=== PATIENT | male | born 1980 | race Caucasian/White ===

== ENCOUNTER 2017-08-02 17:56 | Emergency (ER) | payer MEDICAID, MEDICARE ==
[~2017-08-02 17:56] MED LIST: CHOL10005 PO; CHOL500045 PO; CYCL10TA29 PO; DIA5 PO; GABA-547 PO; GABA-549 PO; HYDR-4309 PO; MELO-207 PO; OMEP40CA48 PO; OXYC-373 PO; OXYC-865 PO; SULF-198 PO; TIZA4CAP3 PO
[2017-08-02] MEDS ORDERED: ASPIRIN 81 MG CHEW PO ONE (18:25)
--- NOTE | 2017-08-02 18:29 | EKG ---
FACILITY: [facility] PATIENT NAME: COLLIN STINSON : [id number] MR: [id number] V: [id number] EXAM DATE: ORDERING PHYSICIAN: DANIELLE CABRAL TECHNOLOGIST: SOL Li Reason : CP Blood Pressure : / mmHG Vent. Rate : 114 BPM Atrial Rate : 114 BPM P-R Int : 164 ms QRS Dur : 086 ms QT Int : 320 ms P-R-T Axes : 062 081 035 degrees QTc Int : 441 ms Sinus tachycardia Otherwise normal ECG No previous ECGs available Confirmed by RADHA OROZCO ([id number]) on 08/03/2017 12:30:30 PM Referred By: Confirmed By:RADHA OROZCO
[2017-08-02 18:35] LABS: PLATELET COUNT, AUTOMATED 235 K/uL (150-450)
--- NOTE | 2017-08-02 18:50 | ER Report ---
History and Physical Time Seen By MD: 18:10 Hx. of Stated Complaint: patient reports chest pain that started around 15 minutes prior to arrival. patient was walking at [facility] HPI/ROS CHIEF COMPLAINT: Chest pain HISTORY OF PRESENT ILLNESS: Patient is a 37-year-old male accompanied by his , who presents the ED with complaint of chest pain started about an hour ago. He states that he 1st noticed some jaw pain about 2 hours ago but went to [facility] and was riding in a cart and noted that he was having a little bit of chest pain as well. He denies any shortness of breath. He did have nausea and an episode of vomiting prior to going to [facility] as well. Patient has not noted any cough or abdominal pain. He denies any diarrhea. Patient has not noted any fever. He does have a history of muscular dystrophy and states that he has had cardiomegaly from this. He also states that he may have had a heart attack previously but denies any Stent or procedure associated with this. REVIEW OF SYSTEMS: Constitutional: No fever, no chills. Eyes: No discharge. ENT: No sore throat. Cardiovascular: See history of present illness. No palpitations. Respiratory: No cough, no shortness of breath. Gastrointestinal: No abdominal pain, no vomiting. Genitourinary: No hematuria. Musculoskeletal: No back pain. Skin: No rashes. Neurological: No headache. Allergies: Coded Allergies: baclofen (Verified Allergy, Severe, HIVES/SWELLING, 10/26/16) Home Meds Discontinued Reported Medications Cholecalciferol (Vitamin D3) (VITAMIN D) 5,000 Unit Tablet, 5000 UNIT PO QDAY 02/20/17 Discontinued Scripts Gabapentin (GABAPENTIN) 300 Mg Capsule, 300 MG PO TID, #90 CAPSULE 3 Refills Prov:BRYCE RAMIREZ MD 02/20/17 Cyclobenzaprine Hcl (CYCLOBENZAPRINE HCL) 10 Mg Tablet, 10 MG PO BID Y for PAIN , SPASM, #60 TAB 3 Refills Prov:BRYCE RAMIREZ MD 01/16/17 Omeprazole (OMEPRAZOLE) 40 Mg Capsule.dr, 40 MG PO QDAY, #30 CAP 3 Refills Prov:BRYCE RAMIREZ MD 01/16/17 Meloxicam (MELOXICAM) 15 Mg Tablet, 15 MG PO QDAY Y for pain, #30 TAB 3 Refills Prov:BRYCE RAMIREZ MD 01/16/17 Reviewed Nurses Notes: Yes Old Medical Records Reviewed: Yes Smoking Status: Current: Every Day Smoker Hx Substance Use Disorder: No Hx Alcohol Use: No Constitutional Vital Sign - Last 24 Hours 08/02/17 08/02/17 08/02/17 08/02/17 17:59 18:00 18:02 18:08 B/P (MAP) 106/82 (90) 106/82 112/81 (91) O2 Delivery Room Air O2 Flow Rate 2.0 08/02/17 08/02/17 08/02/17 08/02/17 18:11 18:26 18:30 18:41 Pulse 107 112 Resp 19 30 21 B/P (MAP) 106/78 (87) Pulse Ox 92 92 91 08/02/17 08/02/17 08/02/17 08/02/17 18:46 19:00 19:01 19:16 Pulse 111 112 108 Resp 20 23 30 B/P (MAP) 101/60 (74) Pulse Ox 91 92 93 08/02/17 08/02/17 08/02/17 08/02/17 19:30 19:31 19:46 20:00 Pulse 101 107 Resp 15 25 B/P (MAP) 96/74 (81) 94/67 (76) Pulse Ox 93 93 08/02/17 08/02/17 08/02/17 08/02/17 20:01 20:16 20:30 20:42 Pulse 102 101 Resp 21 18 B/P (MAP) 95/64 (74) 104/65 (78) Pulse Ox 92 92 08/02/17 08/02/17 08/02/17 08/02/17 20:47 21:00 21:17 21:30 Pulse 94 100 Resp 19 26 B/P (MAP) 112/77 (89) 122/75 (91) Pulse Ox 92 94 08/02/17 08/02/17 08/02/17 21:32 21:37 21:52 Pulse 94 104 89 Resp 23 11 15 Pulse Ox 92 92 92 Physical Exam General Appearance: The patient is alert, has no immediate need for airway protection and no signs of toxicity. She appears to be in no acute distress. Eyes: Pupils equal and round no pallor or injection. ENT, Mouth: Mucous membranes are moist. Respiratory: There are no retractions, lungs are clear to auscultation. Cardiovascular: Slightly tachycardic with normal rhythm. Gastrointestinal: Abdomen is soft and non tender, no masses, bowel sounds normal. Neurological: Cranial nerves II-12 intact. Skin: Warm and dry, no rashes. Musculoskeletal: Neck is supple non tender. Extremities are nontender, nonswollen and have full range of motion. DIFFERENTIAL DIAGNOSIS: After history and physical exam differential diagnosis was considered for chest pain including but not limited to myocardial ischemia, pericarditis pulmonary embolus, chest wall pain, pleural inflammation and pulmonary infectious causes. Medical Decision Making Data Points Result Diagram: 08/02/17 1818 08/02/17 1818 Laboratory Hematology Test 08/02/17 18:18 08/02/17 21:35 Red Blood Count 6.34 M/uL (4.00-5.60) Mean Corpuscular Volume 91.1 fL (80.0-96.0) Mean Corpuscular Hemoglobin 30.7 pg (26.0-33.0) Mean Corpuscular Hemoglobin Concent 33.7 g/dL (32.0-36.0) Red Cell Distribution Width 15.0 % (11.5-14.5) Mean Platelet Volume 9.9 fL (7.2-11.1) Neutrophils (%) (Auto) 72.4 % (39.4-72.5) Lymphocytes (%) (Auto) 18.5 % (17.6-49.6) Monocytes (%) (Auto) 8.4 % (4.1-12.4) Eosinophils (%) (Auto) 0.2 % (0.4-6.7) Basophils (%) (Auto) 0.5 % (0.3-1.4) Nucleated RBC Relative Count (auto) 0.1 /100WBC Neutrophils # (Auto) 7.5 K/uL (2.0-7.4) Lymphocytes # (Auto) 1.9 K/uL (1.3-3.6) Monocytes # (Auto) 0.9 K/uL (0.3-1.0) Eosinophils # (Auto) 0.0 K/uL (0.0-0.5) Basophils # (Auto) 0.1 K/uL (0.0-0.1) Nucleated RBC Absolute Count (auto) 0.01 K/uL Prothrombin Time 13.2 seconds (12.0-14.4) Prothromb Time International Ratio 1.00 Activated Partial Thromboplast Time 34 seconds (23-35) D-Dimer Quantitative (PE/DVT) < 0.27 ug/ml (0-0.50) Sodium Level 145 mmol/L (137-145) Potassium Level 3.7 mmol/L (3.5-5.0) Chloride Level 104 mmol/L (98-107) Carbon Dioxide Level 23 mmol/L (22-30) Blood Urea Nitrogen 11 mg/dl (9-21) Creatinine 0.90 mg/dl (0.66-1.25) Glomerular Filtration Rate Calc > 60.0 Random Glucose 128 mg/dl (75-110) Calcium Level 10.2 mg/dl (8.4-10.2) Total Bilirubin 1.2 mg/dl (0.2-1.3) Aspartate Amino Transf (AST/SGOT) 80 U/L (0-35) Alanine Aminotransferase (ALT/SGPT) 66 U/L (0-56) Alkaline Phosphatase 145 U/L (0-126) B-Type Natriuretic Peptide < 5 pg/ml (0-100) Total Protein 8.3 gm/dl (6.3-8.2) Albumin 4.5 g/dl (3.5-5.0) Lipase 86 U/L (23-300) Troponin I < 0.012 ng/ml Chemistry Test 08/02/17 18:18 08/02/17 21:35 White Blood Count 10.4 k/uL (4.5-11.0) Red Blood Count 6.34 M/uL (4.00-5.60) Hemoglobin 19.4 g/dL (14.0-18.0) Hematocrit 57.8 % (42.0-52.0) Mean Corpuscular Volume 91.1 fL (80.0-96.0) Mean Corpuscular Hemoglobin 30.7 pg (26.0-33.0) Mean Corpuscular Hemoglobin Concent 33.7 g/dL (32.0-36.0) Red Cell Distribution Width 15.0 % (11.5-14.5) Platelet Count 235 K/uL (150-450) Mean Platelet Volume 9.9 fL (7.2-11.1) Neutrophils (%) (Auto) 72.4 % (39.4-72.5) Lymphocytes (%) (Auto) 18.5 % (17.6-49.6) Monocytes (%) (Auto) 8.4 % (4.1-12.4) Eosinophils (%) (Auto) 0.2 % (0.4-6.7) Basophils (%) (Auto) 0.5 % (0.3-1.4) Nucleated RBC Relative Count (auto) 0.1 /100WBC Neutrophils # (Auto) 7.5 K/uL (2.0-7.4) Lymphocytes # (Auto) 1.9 K/uL (1.3-3.6) Monocytes # (Auto) 0.9 K/uL (0.3-1.0) Eosinophils # (Auto) 0.0 K/uL (0.0-0.5) Basophils # (Auto) 0.1 K/uL (0.0-0.1) Nucleated RBC Absolute Count (auto) 0.01 K/uL Prothrombin Time 13.2 seconds (12.0-14.4) Prothromb Time International Ratio 1.00 Activated Partial Thromboplast Time 34 seconds (23-35) D-Dimer Quantitative (PE/DVT) < 0.27 ug/ml (0-0.50) Glomerular Filtration Rate Calc > 60.0 Calcium Level 10.2 mg/dl (8.4-10.2) Total Bilirubin 1.2 mg/dl (0.2-1.3) Aspartate Amino Transf (AST/SGOT) 80 U/L (0-35) Alanine Aminotransferase (ALT/SGPT) 66 U/L (0-56) Alkaline Phosphatase 145 U/L (0-126) B-Type Natriuretic Peptide < 5 pg/ml (0-100) Total Protein 8.3 gm/dl (6.3-8.2) Albumin 4.5 g/dl (3.5-5.0) Lipase 86 U/L (23-300) Troponin I < 0.012 ng/ml Coagulation Test 08/02/17 18:18 Prothrombin Time 13.2 seconds Prothromb Time International Ratio 1.00 Activated Partial Thromboplast Time 34 seconds D-Dimer Quantitative (PE/DVT) < 0.27 ug/ml EKG/Imaging EKG Interpretation 12 lead EKG: Rhythm: Sinus tachycardia, rate 114 bpm [place]: normal QRS: normal ST segments: No acute ST changes identified. There is some T-wave inversion in V1. Monitor Interpretation: Sinus Tachycardia Imaging CXR: IMPRESSION: 1. No acute cardiopulmonary process. Report Dictated By: Kalyan Martínez at 08/02/2017 6:58 PM Report E-Signed By: Kalyan Martínez at 08/02/2017 6:59 PM ED Course/Re-evaluation ED Course Will obtain labs, EKG, chest x-ray. Patient will be given 324 mg aspirin. 08/02/2017 09:00:12 pm - discussed all labs, EKG, chest x-ray with patient. Everything appears to be essentially normal except for his chronically elevated liver enzymes. 08/02/2017 10:05:13 pm - serial troponin was negative. Discussed this with patient. Decision to Disposition Date: Aug 02, 2017 Decision to Disposition Time: 22:05 Depart Departure Latest Vital Signs Vital Signs Date Time Temp Pulse Resp B/P (MAP) Pulse Ox O2 Delivery O2 Flow Rate FiO2 08/02/17 21:52 89 15 92 08/02/17 21:30 122/75 (91) 08/02/17 18:08 2.0 08/02/17 18:00 Room Air Impression: Primary Impression: Chest pain Condition: Improved Disposition: HOME OR SELF-CARE Referrals: [facility] Patient Instructions: Chest Pain (ED) Additional Instructions: Stay well-hydrated. Follow-up with primary care provider in 2-3 days. If having any worsening or concerning symptoms may return to the emergency department. Problem Qualifiers Primary Impression: Chest pain Chest pain type: unspecified Qualified Codes: R07.9 - Chest pain, unspecified DANIELLE CABRAL PA-C Aug 02, 2017 18:50
--- NOTE | 2017-08-02 19:03 | RADIOLOGY IMAGING REPORT ---
FACILITY: [facility] [place] PATIENT NAME: Epi Etienne : 1980 MR: [id number] V: [id number] EXAM DATE: ORDERING PHYSICIAN: DANIELLE CABRAL TECHNOLOGIST: Location: [facility] [place] Patient: Epi Etienne : 1980 Visit/Account:[id number] Date of Sevice: 08/02/2017 CHEST SINGLE AP Indication: Chest pain.. Comparison: None available Findings: Cardiomediastinal silhouette and pulmonary vessels within normal limits. There is no focal infiltrate or lobar consolidation. No pneumothorax or pleural effusion. No nodule. Mild scarring seen in both lower lobes. Upper abdomen is unremarkable. No acute bony abno rmality. IMPRESSION: 1. No acute cardiopulmonary process. Report Dictated By: Kalyan Martínez at 08/02/2017 6:58 PM Report E-Signed By: Kalyan Martínez at 08/02/2017 6:59 PM WSN:[id number]
[2017-08-02 22:00] VITALS: BP 103/74
== END 2017-08-02 22:32 | disposition home or self-care (01) ==
LOC: ER 18:32
DX: R07.9 Chest pain, unspecified (principal); R00.0 Tachycardia, unspecified; F17.210 Nicotine dependence, cigarettes, uncomplicated
CPT/HCPCS: 36415; 71045; 83690; 83880; 84484; 85025; 85379; 85610; 85730; 93005; 99284; A9270; 82040; 82247; 82310; 82374; 82435; 82565; 82947; 84075; 84132; 84155; 84295; 84450; 84460; 84520